=== PATIENT | male | born 1965 | race Caucasian/White ===

== ENCOUNTER 2019-07-03 03:06 | Observation (INO) ==
[2019-07-03] MEDS ORDERED: SODIUM CHLORIDE 0.9% 250 ML IV PRN (03:31)
[2019-07-03] MEDS ORDERED: DIPHTHERIA/TETANUS/PERTUSSIS 0.5 ML SYR/VIAL IM ONE (03:31)
[2019-07-03] MEDS ORDERED: LIDOCAINE HCL 1% 20 ML VIAL INFIL ONE (03:31)
--- NOTE | 2019-07-03 03:37 | Emergency Department Note ---
ED Provider Note Name: YESI BARRIGA Age: 53 Arrives Via: Ambulance Informant: Patient, Friends CC: GI Bleed HPI: 53M arrives for evaluation of GI Bleed. Patient with history of ulcerative colitis who notes no issues last few years. He had colonoscopy 10 days ago during which he notes there were 2 polyps removed and clip placed. He states he was feeling fine. He went to football game and noted his chronic low back pain acting up. Went to hotel eventually where he noted bloody bowel movement. Got in bed but started feeling cramping. Got up, had syncopal event witnessed by friends. Collapsed in to door frame with forehead trauma. Lacerations obtained. No known last tetanus. After awakening diaphoretic and lightheaded. Friend helped him to bathroom where he filled toilet with bright red blood. Some lesser bleeding since. EMS brought to ED. NSS Bolus given en route. No trauma, injuries. Notes Advil 400mg PO yesterday morning though doesn't take this regularly. Denies asa nor blood thinner use. No history of bleeding/bruising issues. No family history of bleeding issues. Notes he is currently feeling better. Mild headache. Denies neck pain, parethesias, nor other symptoms. Denies cp, sob, back pain beyond baseline, nor other symptoms. ROS: See above HPI for pertinent positives & negatives. A total of 10 systems reviewed and were otherwise negative. 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 HEAD: Contusion forehead with 4 cm simple vertical laceration mild venous bleeding, 2 cm abrasion medial to laceration. EYES: No scleral icterus, unremarkable pupils. ENT: Mucous membranes moist, no nasal congestion. NECK: No masses appreciated, nomeningismus, trachea is midline. RESPIRATORY: No dyspnea. Clear to auscultation and equal bilaterally. No wheeze, no rhonchi. CARDIOVASCULAR: Regular rate and rhythm.No murmurs, rubs, gallops appreciated. GASTROINTESTINAL: Abdomen soft, non-tender, no peritonitis.Bowel sounds positive.No masses appreciated. : Normal appearing male genitalia, blood throughout inner thighs and buttocks BACK: No midline tenderness, no CVA tenderness EXTREMITIES: Normal motion all extremities, no cyanosis, no edema. NEUROLOGIC: Alert and oriented, no acute motor or sensory deficits, no focal weakness, cranial nerves grossly intact. SKIN: No rash, no jaundice, no diaphoresis. ED Course: Prior Medical Record, Triage/Nursing Notes, Medications, Allergies reviewed by Me Vital Signs: reviewed and remarkable for no significant abnormalities Labs:Reviewed and remarkable for anemia Interventions: Saline Lock, NSS Bolus Imaging:X ray results are stated below per my interpretation: Chest: 1 view: No infiltrate, no effusion, normal cardiac border. [facility] Radiologist interpretation reviewed by me: CT head no acute findings EKG:Per My Interpretation: Indication Syncope Collapse: NSR 84 bpm qtc 470 no ectopy no ischemia, no previous for comparison Consults:Dr Rahul Khoury and Dr Calvillo [place] [facility] Procedure: laceration repair Location: Forehead Total length: 4cm Complexity: simple Verbal consent was obtained after the risks and benefits were explained, including but not limited to bleeding, scarring, infection, pain, and bone/joint/nerve damage. At this time, the risks of the procedure are less than the risks of NOT performing the procedure. A time out was taken and the correct patient and site identified. The skin was prepped with betadine. The target area was anesthetized with 4 ml of 1% lidocaine without epinephrine. Copious irrigation was performed using betadine and saline. The skin was re-prepped with betadine and a sterile field set. The wound was explored for foreign bodies and none found. Examination revealed no injury to deep structures such as tendons, bone, or significant blood vessels. Debridement was not performed. The wound edges were approximated using 11, 6-0 simple interrupted nylon sutures. Hemostasis and excellent approximation was achieved. Antibacterial ointment and a sterile dressing applied. Detailed wound care instructions and signs and symptoms of infection reviewed with the patient and friends. No complications and the patient tolerated the procedure well. Blood pressure:Normal.No Referral necessary Disposition:Hospitalization Differentials:Bleed from recent clipping, Diverticulitis, AVM, Coagulopathy, Colitis, Malignancy, Upper GI bleed, Fissure, Hemorrhoids, amongst other pathologies entertained. Medical Decision Makin yr old pleasant male arrives s/p syncope followed by multiple large bloody bowel movements. Lightheaded/dehydrated on arrival and given 1 L NSS bolus. Hgb 12 which I suspect is low for him. No significant abdominal pain nor TTP to require emergent imaging. BP/HR OK while here. EKG Trop negative. CT head negative. Laceration sutured by me. Discussed wound care and for suture removal in 5-7 days and plastic surgery follow up as necessary. Patient with repeat HgB mildly dropped from arrival though within 2 hours. I did review with call center operations manager GI who are aware and agree with current plan. Patient with periodic bloody bowel movements but vitals stable. Hospitalist in to see patient early and will bring in for further management. Did take single dose 400mg Advil yesterday though will hold on trying to reverse. He has low back pain which notes is chronic and without neuro deficits will hold on imaging currently. Impression: Acute Lower Gastrointestinal Bleeding Acute Blood Loss Anemia Syncope and Collapse Closed Head Injury Laceration of Face Cristóbal Islas MD Impression & Plan Acute lower gastrointestinal bleeding, Acute blood loss anemia, Syncope and collapse, Closed head injury, Laceration of face Past Med/Surg History Social History Feels Safe at Home: Yes Smoking Status: Never smoker Results & Data Vital Signs Vital Signs - 24 hr 07/03/19 03:00 07/03/19 06:12 Sepsis Recent Fever Within 48 Hours No Sepsis New/Unexplained Change in Mental Status No Sepsis Action Taken by Nursing No Action Required Pulse Rate 88 Pulse Rate [Right Finger] 97 H Pulse Rhythm Regular Pulse Rhythm [Right Finger] Regular Pulse Strength Normal Pulse Strength [Right Finger] Normal Respiratory Rate 18 16 Respiratory Effort / Characteristics Non-Labored Spontaneous Non-Labored Spontaneous Respiratory Depth Normal Normal Respiratory Pattern Regular Regular Blood Pressure 120/78 Blood Pressure [Right Arm] 131/89 Blood Pressure Mean 92 Blood Pressure Mean [Right Arm] 103 Blood Pressure Position Lying Blood Pressure Position [Right Arm] Lying Pulse Oximetry 98 99 Oxygen Delivery Method Room Air Room Air Laboratory Data Result diagrams: 07/03/19 05:00 07/03/19 03:16 Lab Results 07/03/19 07/03/19 07/03/19 Range/Units 03:16 03:16 03:16 WBC 14.46 H (4.8-10.8) K/uL RBC 4.15 L (4.7-6.1) M/uL Hgb 12.6 L (14.0-18.0) g/dL Hct 35.9 L (42-52) % MCV 86.5 (80-100) fL MCH 30.4 (25-34) pg MCHC 35.1 (32-36) g/dL RDW Std Deviation 39.8 (36.4-46.3) fL RDW Coeff of Eduin 12.5 (11.5-14.5) % Plt Count 255 (130-400) K/uL MPV 10.5 H (7.4-10.4) fL Immature Gran % (Auto) 0.9 % Neut % (Auto) 63.1 % Lymph % (Auto) 28.5 % [place] % (Auto) 5.3 % Eos % (Auto) 2.0 % Baso % (Auto) 0.2 % Immature Gran # (Auto) 0.13 H (0.00-0.02) K/uL Neut # (Auto) 9.13 H (1.4-6.5) K/uL Lymph # (Auto) 4.12 H (1.2-3.4) K/uL [place] # (Auto) 0.76 H (0.11-0.59) K/uL Eos # (Auto) 0.29 (0-0.5) K/uL Baso # (Auto) 0.03 (0-0.2) K/uL PT 10.6 (9.0-12.0) Seconds INR 1.0 (0.9-1.1) APTT 22.7 (21.0-31.0) Seconds PTT Ratio 0.8 Sodium (136-145) mmol/L Potassium (3.5-5.1) mmol/L Chloride (98-107) mmol/L Carbon Dioxide (21-32) mmol/L Anion Gap (3-11) BUN (7-18) mg/dl Creatinine (0.6-1.4) mg/dl Est Cr Clr Drug Dosing Est GFR ( Amer) Est GFR (Non-Af Amer) BUN/Creatinine Ratio (10-20) Glucose (70-99) mg/dl Calcium (8.5-10.1) mg/dl Troponin I (0-0.045) ng/ml Urine Color Urine Appearance (Clear) Urine pH (4.5-7.5) Ur Specific [place] (1.000-1.030) Urine Protein (Negative) Urine Glucose (UA) (Negative) Urine Ketones (Negative) Urine Blood (Negative) Urine Nitrite (Negative) Urine Bilirubin (Negative) Urine Urobilinogen (Negative) Ur Leukocyte Esterase (Negative) Urine RBC (0-4) /hpf Urine WBC (0-5) /hpf Ur Epithelial Cells (0-5) /lpf Urine Bacteria (Negative) Blood Type O Positive Antibody Screen NEGATIVE Crossmatch See Detail 07/03/19 07/03/19 07/03/19 Range/Units 03:16 04:55 05:00 WBC (4.8-10.8) K/uL RBC (4.7-6.1) M/uL Hgb 11.3 L (14.0-18.0) g/dL Hct 32.5 L (42-52) % MCV (80-100) fL MCH (25-34) pg MCHC (32-36) g/dL RDW Std Deviation (36.4-46.3) fL RDW Coeff of Eduin (11.5-14.5) % Plt Count (130-400) K/uL MPV (7.4-10.4) fL Immature Gran % (Auto) % Neut % (Auto) % Lymph % (Auto) % [place] % (Auto) % Eos % (Auto) % Baso % (Auto) % Immature Gran # (Auto) (0.00-0.02) K/uL Neut # (Auto) (1.4-6.5) K/uL Lymph # (Auto) (1.2-3.4) K/uL [place] # (Auto) (0.11-0.59) K/uL Eos # (Auto) (0-0.5) K/uL Baso # (Auto) (0-0.2) K/uL PT (9.0-12.0) Seconds INR (0.9-1.1) APTT (21.0-31.0) Seconds PTT Ratio Sodium 139 (136-145) mmol/L Potassium 3.8 (3.5-5.1) mmol/L Chloride 109 H (98-107) mmol/L Carbon Dioxide 25 (21-32) mmol/L Anion Gap 5.0 (3-11) BUN 27 H (7-18) mg/dl Creatinine 1.08 (0.6-1.4) mg/dl Est Cr Clr Drug Dosing Not Reportable Est GFR ( Amer) 91.0 Est GFR (Non-Af Amer) 78.5 BUN/Creatinine Ratio 25.0 H (10-20) Glucose 113 H (70-99) mg/dl Calcium 8.6 (8.5-10.1) mg/dl Troponin I < 0.015 (0-0.045) ng/ml Urine Color Yellow Urine Appearance Clear (Clear) Urine pH 6.0 (4.5-7.5) Ur Specific [place] 1.020 (1.000-1.030) Urine Protein Negative (Negative) Urine Glucose (UA) Negative (Negative) Urine Ketones 1+ H (Negative) Urine Blood 2+ H (Negative) Urine Nitrite Negative (Negative) Urine Bilirubin Negative (Negative) Urine Urobilinogen Negative (Negative) Ur Leukocyte Esterase Negative (Negative) Urine RBC 0-4 (0-4) /hpf Urine WBC 0-5 (0-5) /hpf Ur Epithelial Cells 0-5 (0-5) /lpf Urine Bacteria Negative (Negative) Blood Type Antibody Screen Crossmatch Administered Medications Sodium Chloride (Nss 1000ml) 1,000 mls @ 125 mls/hr IV .Q8H [facility] Stop: 08/02/19 03:44 Last Admin: 07/03/19 04:38 Dose: 125 mls/hr Documented by: [id number] Discontinued Medications Diphtheria/Pertussis/Tetanus Vacc (Adacel) 0.5 ml IM .ONCE ONE Stop: 07/03/19 03:32 Last Admin: 07/03/19 05:05 Dose: 0.5 ml Documented by: [id number] Sodium Chloride (Nss 1000ml) 1,000 mls @ 999 mls/hr IV .Q1H1M [facility] Stop: 07/03/19 05:45 Last Admin: 07/03/19 05:11 Dose: 999 mls/hr Documented by: [id number] Lidocaine HCl (Xylocaine 1% (Local)) 20 ml INFIL NOW ONE Stop: 07/03/19 03:32 Last Admin: 07/03/19 05:06 Dose: Not Given Documented by: [id number] Discharge Plan Visit Data Chief Complaint: GI Bleed Stated Complaint: GI BLEED/SYNCOPE/LACERATION Other Complaint: Laceration/Cut (Suture/Dermabond) Syncope ED Provider: Cristóbal Islas Discharge Problem: Acute lower gastrointestinal bleeding, Acute blood loss anemia, Syncope and collapse, Closed head injury, Laceration of face Forms Stand Alone Forms: [facility] Prescriptions Prescriptions: No Action tamsulosin 0.4 mg capsule 0.4 mg PO DAILY RF: 0 pregabalin 50 mg capsule 50 mg PO TID RF: 0 Discharge Problem: Closed head injury Qualifiers: Encounter type: initial encounter Qualified Code(s): S09.90XA - Unspecified injury of head, initial encounter Laceration of face Qualifiers: Encounter type: initial encounter Qualified Code(s): S01.81XA - Laceration without foreign body of other part of head, initial encounter
[2019-07-03] MEDS ORDERED: SODIUM CHLORIDE 0.9% 1000ML 1,000 ML IV SCH ×2 (03:45→04:45)
[2019-07-03 03:46] LABS: Basophils # (auto) 0.03 K/uL (0-0.2); Basophils % (auto) 0.2 %; Eosinophils # (auto) 0.29 K/uL (0-0.5); Hematocrit (blood only) 35.9 % (42-52); Hemoglobin 12.6 g/dL (14.0-18.0); Immature Granulocytes # (auto) 0.13 K/uL (0.00-0.02); Immature Granulocytes % (auto) 0.9 %; Lymphocytes # (auto) 4.12 K/uL (1.2-3.4); Lymphocytes % (auto) 28.5 %; Mean Corpuscular Hemoglobin 30.4 pg (25-34); Mean Corpuscular Hgb Conc 35.1 g/dL (32-36); Mean Corpuscular Volume 86.5 fL (80-100); Mean Platelet Volume 10.5 fL (7.4-10.4); Monocytes # (auto) 0.76 K/uL (0.11-0.59); Monocytes % (auto) 5.3 %; Neutrophils # (auto) 9.13 K/uL (1.4-6.5); Neutrophils % (auto) 63.1 %; Platelet Count 255 K/uL (130-400); RDW Coefficient of Variation 12.5 % (11.5-14.5); RDW Standard Deviation 39.8 fL (36.4-46.3); Red Blood Count 4.15 M/uL (4.7-6.1); White Blood Count 14.46 K/uL (4.8-10.8)
[2019-07-03 03:53] LABS: Blood Urea Nitrogen 27 mg/dl (7-18); Calcium 8.6 mg/dl (8.5-10.1); Carbon Dioxide 25 mmol/L (21-32); Chloride 109 mmol/L (98-107); Est GFR (Non-African American) 78.5; Glucose 113 mg/dl (70-99); Potassium 3.8 mmol/L (3.5-5.1); Sodium 139 mmol/L (136-145)
[2019-07-03 03:58] LABS: Troponin I < 0.015 ng/ml (0-0.045)
[2019-07-03 04:00] LABS: Partial Thromboplastin Ratio 0.8; Partial Thromboplastin Time 22.7 Seconds (21.0-31.0); Prothrombin Time 10.6 Seconds (9.0-12.0)
[2019-07-03 05:14] LABS: Hematocrit (blood only) 32.5 % (42-52); Hemoglobin 11.3 g/dL (14.0-18.0)
[2019-07-03 05:15] LABS: Appearance Urine Clear (Clear); Bilirubin Urine Negative (Negative); Blood Urine 2+ (Negative); Color Urine Yellow; Glucose Urine UA Negative (Negative); Ketones Urine 1+ (Negative); Leukocyte Esterase Urine Negative (Negative); Nitrite Urine Negative (Negative); Protein Urine Negative (Negative); Urobilinogen Urine Negative (Negative)
[2019-07-03 05:26] LABS: Bacteria Urine Negative (Negative); Epithelial Cell Urine 0-5 /lpf (0-5); RBC Urine 0-4 /hpf (0-4); WBC Urine 0-5 /hpf (0-5)
--- NOTE | 2019-07-03 06:13 | History & Physical Report ---
Date of Service July 03, 2019 Assessment & Plan (1) Post-polypectomy bleeding: Status post polypectomy, with acute lower GI bleeding, bright red blood per rectum. Leading to syncope. Did take ibuprofen 40 mg approximately 24 hours previously. If continues to have larger volume bleeding, would add DDAVP. I sent to get records of procedure from outside hospital. On-call gastroenterology has been notified and will see the patient. Present on Admission?: Yes (2) Acute lower gastrointestinal bleeding: See above Present on Admission?: Yes (3) Acute blood loss anemia: Initial hemoglobin 12.6, with follow-up after 1 L of fluid 11.3. We will continue to follow H&H's every 6 hours. Type and screen completed Present on Admission?: Yes (4) Syncope and collapse: Syncope and collapse/closed head injury/right frontal laceration- CT head negative for acute intracranial bleeding. Secondary to acute lower GI bleeding. Likely in part vasovagal syncope. Present on Admission?: Yes (5) Closed head injury: See above Present on Admission?: Yes (6) Ulcerative colitis: Not active, just had routine colonoscopy Present on Admission?: Yes (7) Laceration of face: Repaired by the ED. Present on Admission?: Yes (8) BPH (benign prostatic hyperplasia): Hold tamsulosin while npo Present on Admission?: Yes (9) Chronic low back pain: hold gabapentin while npo Present on Admission?: Yes History of Present Illness Chief Complaint: The patient presents to the emergency department with complaint of a large bloody bowel movement, followed by a syncopal episode with forehead laceration. Primary Care Provider: NO PCP The patient is a 53-year-old male, in for the football game from out of town, who has a past medical history including ulcerative colitis, peripheral neuropathy, and BPH, who underwent a colonoscopy approximately 10 days ago, with polypectomy x2 and clip placement. He appeared to have tolerated the procedure well, and had been doing well until after football game yesterday. When he went back to his hotel, he had a large bloody bowel movement, and then had a syncopal episode with sustained laceration to right frontal scalp area. He has not had any previous episodes, and has continued to have less voluminous bloody BMs while in the ED, although he does have intermittent abdominal cramping. He does report a single usage of ibuprofen 400 mg p.o. yesterday morning for chronic low back pain. Allergies Allergy/AdvReac Type Severity Reaction Status Date / Time No Known Allergies Allergy Unverified 07/03/19 05:39 Home Medications Home Medications Medication Instructions Recorded Confirmed Type pregabalin 50 mg PO TID 07/03/19 07/03/19 History tamsulosin 0.4 mg PO DAILY 07/03/19 07/03/19 History Past Med/Surg History Social History Feels Safe at Home: Yes Smoking Status: Never smoker Review of Systems Review of Systems: The patient denies chest pain, palpitations, shortness of breath, dyspnea on exertion, cough, lower extremity swelling, sore throat, fevers, chills, sweats, nausea, vomiting, blood in urine, dysuria, urinary frequency or urgency, rash, focal weakness, numbness or tingling in arms or legs, generalized arthralgias or myalgias, change in chronic low back pain, or night sweats. The review of systems is otherwise negative other than for that already noted above, and at least 10 systems have been reviewed. Physical Exam Physical Exam: The patient is awake, alert and oriented 3, lying in bed, looks pale and mildly diaphoretic, with right frontal scalp laceration. HEENT--PERRL, EOMI, mucous membranes and oropharynx dry. Neck--supple. No JVD. No bruits. Thyroid normal, trachea midline, no adenopathy. Heart--normal S1 and S2. No murmurs, rubs or gallops. Lungs--clear bilaterally, no respiratory distress, no accessory muscle use. Abdomen--normal bowel sounds and soft. Nontender. Nondistended. Extremities--no cyanosis or clubbing. No edema. Dermatologic--looks pale and mildly diaphoretic Neurologic--cranial nerves II through XII grossly intact. Rheumatologic--normal range of motion. Psychiatric--normal affect. Results & Data Vital Signs (Past 12 Hours) Vital Signs Pulse Resp BP Pulse Ox 07/03/19 03:00 88 18 120/78 98 Laboratory Results Laboratory Results WBC 14.46 K/uL (4.8-10.8) H 07/03/19 03:16 RBC 4.15 M/uL (4.7-6.1) L 07/03/19 03:16 Hgb 11.3 g/dL (14.0-18.0) L 07/03/19 05:00 Hct 32.5 % (42-52) L 07/03/19 05:00 MCV 86.5 fL (80-100) 07/03/19 03:16 MCH 30.4 pg (25-34) 07/03/19 03:16 MCHC 35.1 g/dL (32-36) 07/03/19 03:16 RDW Std Deviation 39.8 fL (36.4-46.3) 07/03/19 03:16 RDW Coeff of Eduin 12.5 % (11.5-14.5) 07/03/19 03:16 Plt Count 255 K/uL (130-400) 07/03/19 03:16 MPV 10.5 fL (7.4-10.4) H 07/03/19 03:16 Immature Gran % (Auto) 0.9 % 07/03/19 03:16 Neut % (Auto) 63.1 % 07/03/19 03:16 Lymph % (Auto) 28.5 % 07/03/19 03:16 [place] % (Auto) 5.3 % 07/03/19 03:16 Eos % (Auto) 2.0 % 07/03/19 03:16 Baso % (Auto) 0.2 % 07/03/19 03:16 Immature Gran # (Auto) 0.13 K/uL (0.00-0.02) H 07/03/19 03:16 Neut # (Auto) 9.13 K/uL (1.4-6.5) H 07/03/19 03:16 Lymph # (Auto) 4.12 K/uL (1.2-3.4) H 07/03/19 03:16 [place] # (Auto) 0.76 K/uL (0.11-0.59) H 07/03/19 03:16 Eos # (Auto) 0.29 K/uL (0-0.5) 07/03/19 03:16 Baso # (Auto) 0.03 K/uL (0-0.2) 07/03/19 03:16 PT 10.6 Seconds (9.0-12.0) 07/03/19 03:16 INR 1.0 (0.9-1.1) 07/03/19 03:16 APTT 22.7 Seconds (21.0-31.0) 07/03/19 03:16 PTT Ratio 0.8 07/03/19 03:16 Sodium 139 mmol/L (136-145) 07/03/19 03:16 Potassium 3.8 mmol/L (3.5-5.1) 07/03/19 03:16 Chloride 109 mmol/L (98-107) H 07/03/19 03:16 Carbon Dioxide 25 mmol/L (21-32) 07/03/19 03:16 Anion Gap 5.0 (3-11) 07/03/19 03:16 BUN 27 mg/dl (7-18) H 07/03/19 03:16 Creatinine 1.08 mg/dl (0.6-1.4) 07/03/19 03:16 Est Cr Clr Drug Dosing Not Reportable 07/03/19 03:16 Est GFR ( Amer) 91.0 07/03/19 03:16 Est GFR (Non-Af Amer) 78.5 07/03/19 03:16 BUN/Creatinine Ratio 25.0 (10-20) H 07/03/19 03:16 Glucose 113 mg/dl (70-99) H 07/03/19 03:16 Calcium 8.6 mg/dl (8.5-10.1) 07/03/19 03:16 Troponin I < 0.015 ng/ml (0-0.045) 07/03/19 03:16 Urine Color Yellow 07/03/19 04:55 Urine Appearance Clear (Clear) 07/03/19 04:55 Urine pH 6.0 (4.5-7.5) 07/03/19 04:55 Ur Specific [place] 1.020 (1.000-1.030) 07/03/19 04:55 Urine Protein Negative (Negative) 07/03/19 04:55 Urine Glucose (UA) Negative (Negative) 07/03/19 04:55 Urine Ketones 1+ (Negative) H 07/03/19 04:55 Urine Blood 2+ (Negative) H 07/03/19 04:55 Urine Nitrite Negative (Negative) 07/03/19 04:55 Urine Bilirubin Negative (Negative) 07/03/19 04:55 Urine Urobilinogen Negative (Negative) 07/03/19 04:55 Ur Leukocyte Esterase Negative (Negative) 07/03/19 04:55 Urine RBC 0-4 /hpf (0-4) 07/03/19 04:55 Urine WBC 0-5 /hpf (0-5) 07/03/19 04:55 Ur Epithelial Cells 0-5 /lpf (0-5) 07/03/19 04:55 Urine Bacteria Negative (Negative) 07/03/19 04:55 Blood Type O Positive 07/03/19 03:16 Antibody Screen NEGATIVE 07/03/19 03:16 Crossmatch See Detail 07/03/19 03:16 Diagnostic Findings [place], [place] [phone] XRay Report Patient: KIN HESS Date: 07/02/19 MR#: [id number] [address] Acct ID:[id number]: FREDIS DIOR PERSONAL CARE Date: 03/08/1926[facility] Zip: [place] [address] Age: 89Location: ED Sex: M Room/Bed: Att Phy:Diagnosis: AMS [place] Phy: Fredis DiorPCHService Date: 07/02/19 Fam Phy:Interpreting Phy: Phill Gay MD Admit Phy: Ordering Phy: Cristóbal Islas M.D. cc: ~ XR chest 1V portable CLINICAL HISTORY: fever, confusion COMPARISON STUDY: 06/12/2019 FINDINGS: Ill-defined interstitial infiltrate left base. Lungs otherwise appear clear. Diaphragms are smooth. IMPRESSION: Minimal interstitial infiltrate left base. The above report was generated using voice recognition software. It may contain grammatical, syntax or spelling errors. Electronically signed by: Phill Gay M.D. 07/02/2019 10:52 PM Dictated: 07/02/192250 Transcribed: 07/02/192250 Code Status & VTE Plan Code Status Full code VTE Prophylaxis Plan VTE Prophylaxis will be ordered: Yes PG Care Time/CCT Total # of Minutes Spent Total Time Spent with Patient: Total time spent is greater than 50% in coordination of care (as documented) at patient's floor/unit and/or counseling patient: (1) Closed head injury Encounter type: initial encounter Qualified Code(s): S09.90XA - Unspecified injury of head, initial encounter (2) Laceration of face Encounter type: initial encounter Qualified Code(s): S01.81XA - Laceration without foreign body of other part of head, initial encounter
--- NOTE | 2019-07-03 06:58 | CT Scan Report ---
HEAD CT NONCONTRAST CT DOSE: 614.27 mGy.cm HISTORY: syncope, forehead injury TECHNIQUE: Multiaxial CT images of the head were performed without the use of intravenous contrast. A utomated exposure control was utilized for this study. A dose lowering technique was utilized adheri ng to the principles of ALARA. Comparison: None. Findings: The paranasal sinuses and mastoid air cells are clear. The calvarium and skull base are int act. The ventricles and sulci are within normal limits. There is no mass, hematoma, midline shift, or acute infarct. Right frontal scalp swelling with a small laceration. Impression: No acute intracranial abnormality. Right frontal scalp injury. Electronically signed by: Abraham Blanton M.D. 07/03/2019 6:57 AM
[2019-07-03] MEDS ORDERED: ONDANSETRON INJ 2 MG/ML 2 ML VIAL IV PRN (06:59)
[2019-07-03] MEDS ORDERED: NSS + 20MEQ KCL 20 MEQ/1,000 ML BAG IV SCH (06:59)
--- NOTE | 2019-07-03 07:54 | XRay Report ---
XR chest 1V portable HISTORY: syncope COMPARISON: None. FINDINGS: The lungs are clear. Cardiac silhouette is normal in size. No pleural effusions. No pneumot horax. IMPRESSION: No acute process. Electronically signed by: Abraham Blanton M.D. 07/03/2019 7:53 AM
--- NOTE | 2019-07-03 07:55 | XRay Report ---
KUB HISTORY: s/p polypectomy, lower gi bleed, abdominal pain COMPARISON: None. FINDINGS: The bowel gas pattern is unremarkable. There are no dilated loops of small bowel to suggest an obstruction. No renal calculi. No ureteral calculi. Calcifications in the deep pelvis likely rep resent phleboliths. No pneumoperitoneum or pneumatosis. IMPRESSION: Unremarkable bowel gas pattern. No evidence for bowel obstruction. Electronically signed by: Abraham Blanton M.D. 07/03/2019 7:54 AM
[2019-07-03] MEDS ORDERED: FAMOTIDINE 20 MG in SYRINGE 3 ML IV SCH (08:00)
[2019-07-03 08:06] LABS: Hematocrit (blood only) 32.4 % (42-52); Hemoglobin 11.5 g/dL (14.0-18.0)
--- NOTE | 2019-07-03 09:19 | Gastrointestinal Consultation ---
Date of Consultation July 03, 2019 Supervising Physician Co-Signing Physician Notes 53 yo male with a history of prior colitis that appears to be quiescent, recent colonoscopy 10 days ago in [place], [place] with reports of polypectomy with clip placement in the ascending colon per patient report. Admitted overnite thru the ER for rectal bleeding and syncope after having been drinking during the day at [employer] game and also eating cheesesteaks. He has remained hemodynamically stable. Per discussion with this morning, he wants to go home. Would trend h/h - if noon time h/h is stable (over 10), and he is not having active bleeding or feeling better, reasonable to dc home with close GI follow-up where her normally lives in [place], [place]. If hgb is dropping and or he is having more profuse rectal bleeding, would consider prep (would need to order with [employer] 4 liters), and make npo after midnite for possible colonoscopy tomorrow. Plan was conveyed to patient and primary hospitalist. Denies being on blood thinners. If he develops abdominal pain, would consider CT A/P with contrast. History of Present Illness Reason for Consultation: Rectal bleeding Requesting Physician: ER physician Attending Physician: Gordon Interiano MD History of Present Illness 53 yo male with a history of being here in town for the [employer]. [facility]. He reports a history of remote IBD (not clear if uc or crohn's) since the age of 22, he has been on predisone and sufasalazine on and off. Was having back pain- call his local GI doctor in [place], [place] and had a colonoscopy reportedly 10 days ago. Per patient report, on that colonoscopy no evidence of colitis, 2 polyps - 5 mm and 8 mm he thinks in the ascending colon with a clip placed, no diverticula, or hemorrhoids. No issues with bleeding post polypectomy. During the game yesterday, he had 5 beers and a shot between noon and 6 pm, and ate some cheesesteaks, sitting in the stadium thereafter with bad back pain- took an alleve, left the stadium with a friend. Stopped bc he felt like he was having diarrhea- non-bloody at that time, no abdominal pain. He then made it back home- watched the 4th quarter of the football game and baseball game, went to sleep, woke up with urgency and passed bright red blood in the toilet bowl- no abdominal pain with this episode. He then felt woozy, does not think he was drunk, but then thinks he fell- someone found him and he had blood in his hand and a right forehead lac. He was then brought into the ER - he has been hemodynamically stable, passing blood intermittently, initial hgb 12.5, then 11.3, and now 11.5. Received fluid. When seeing him bedside this morning, he states he is feeling much better. He is still going to the bathroom but it is more congealed. He feels tired but overall better. Denies being on blood thinners. No abdominal pain with any of these episodes. with him today when I saw them this morning. 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 Beliefs That Will Affect Care: None Current Living Situation: Spouse Feels Safe at Home: Yes Smoking Status: Never smoker Hx Alcohol Use: Yes ("rarely") Hx Substance Use: No Review of Systems Review of Systems: All systems reviewed & are unremarkable except as noted in HPI & below Physical Exam 2 Physical Exam: Tired appearing white male in nad Constitutional: Forehead laceration Eyes: PERRL, conjunctivae normal, anicteric sclerae Gastrointestinal (Abdomen): normal bowel sounds, soft, nontender, no hepatosplenomegaly Neurologic: CN's II-XI intact bilaterally Results & Data Vital Signs (Past 12 Hours) Vital Signs Temp Pulse Pulse Resp BP BP BP 07/03/19 07:38 36.7 C 88 16 108/66 07/03/19 06:35 36.6 C 80 18 134/101 H 07/03/19 06:12 97 H 16 131/89 07/03/19 03:00 88 18 120/78 Pulse Ox 07/03/19 07:38 98 07/03/19 06:35 100 07/03/19 06:12 99 07/03/19 03:00 98 Labs reviewed
[2019-07-03 12:18] LABS: Hematocrit (blood only) 32.5 % (42-52); Hemoglobin 11.4 g/dL (14.0-18.0)
--- NOTE | 2019-07-03 12:30 | Discharge Summary ---
Date of Service July 03, 2019 Admission HPI Per Admitting Provider The patient is a 53-year-old male, in for the football game from out of town, who has a past medical history including ulcerative colitis, peripheral neuropathy, and BPH, who underwent a colonoscopy approximately 10 days ago, with polypectomy x2 and clip placement. He appeared to have tolerated the procedure well, and had been doing well until after football game yesterday. When he went back to his hotel, he had a large bloody bowel movement, and then had a syncopal episode with sustained laceration to right frontal scalp area. He has not had any previous episodes, and has continued to have less voluminous bloody BMs while in the ED, although he does have intermittent abdominal cramping. He does report a single usage of ibuprofen 400 mg p.o. yesterday morning for chronic low back pain. Principal Diagnosis Post-polypectomy lower GI bleeding Syncope - due to lower GI bleed Scalp laceration Discharge Exam Constitutional WD/WN, vitals as above Neck normal visual inspection and trachea midline Respiratory normal respiratory effort, lungs clear to auscultation Cardiovascular RRR, no murmur, no edema Gastrointestinal (Abdomen) normal bowel sounds, soft, nontender, no hepatosplenomegaly Musculoskeletal no cyanosis or clubbing, extremities motor strength 5/5 Skin no rashes, warm and dry Neurologic moves all extremities and awake; no focal motor deficits and not confused Psychiatric A+Ox3, euthymic affect Discharge Data Allergies Allergy/AdvReac Type Severity Reaction Status Date / Time No Known Allergies Allergy Unverified 07/03/19 05:39 Consultations 07/03/19 04:17 ED Decision to Admit Stat 07/03/19 05:45 Consult Gastroenterology Routine 07/03/19 06:59 Consult Case Management - Discharge Planning Routine Ordered Studies 07/03/19 03:31 CT head/brain wo con Urgent Hospital Course (1) Post-polypectomy [age]-year-old male with known ulcerative colitis observed overnight due to lower GI bleed causing syncope. Patient is from out of town and underwent colonoscopy last week with his usual switchboard installer. He reports removal of polyps at that time. He is concerned because he had an MRI on Thursday and is wondering whether this loosened 1 of the clips. No further bleeding episodes we re noted on observation. His hemoglobin is stable. Hemoglobin 11.4 on discharge. He was reviewed by Dr.Nina Kay from gastroenterology and recommended discharge at this time. The patient should call his usual switchboard installer tomorrow. He also had a scalp laceration due to the syncopal events which was sutured in the emergency room. Sutured with 11, 6-0 simple interrupted nylon sutures. To be removed in 7-10 days. Please follow up with your PCP regarding this. Suspect syncopal event due to vasovagal effects of lower GI bleed. He has been hemodynamically stable throughout admission. He was able to ambulate around the sal without dizziness prior to discharge. He was instructed he should not drive for the next 24 hours. (2) Acute lower gastrointestinal bleeding: See above (3) Acute blood loss anemia: (4) Syncope and collapse: (5) Closed head injury: (6) Ulcerative colitis: (7) Laceration of face: (8) BPH (benign prostatic hyperplasia): (9) Chronic low back pain: Total Time Total Time Spent Total Time Spent (In Minutes): 55 Total Time Includes: Examination of the Patient, Discharge Planning, Medication Reconciliation and Communication With Other Providers (Dr. Krystle Kay) Discharge Plan Discharge Items Patient Disposition: Home - Self-Care Reason For Visit: LOWER GI BLEED Discharge Diagnosis: Post-polypectomy lower GI bleeding Syncope - due to lower GI bleed Ulcerative colitis without active flare Scalp laceration Condition on Discharge: Fair Activity: Resume your previous activity Non-emergency contact: Primary Care Provider Call non-emergency contact if: you have any medication questions and your symptoms worsen Follow-up/Referrals: PCP,NO [Primary Care Provider] - Diet: Regular Addtl Attending Provider Instructions: You were observed overnight due to lower GI bleed. Suspect this is due to recent polypectomy exacerbated ibuprofen use and possibly MRI. This remained stable and review from gastroenterology recommended discharge with close follow up with your usual switchboard installer (please call in the morning). Hgb 11.4 on discharge. You also had a scalp laceration - this was sutured with 11, 6-0 simple interrupted nylon sutures. To be removed in 7-10 days. Please follow up with your PCP regarding this. Pending Studies at Discharge: Yes (Stool culture) Stand-Alone Forms: [facility] [employer] Medications and DC Order Prescriptions: Continued tamsulosin 0.4 mg capsule 0.4 mg PO DAILY RF: 0 pregabalin 50 mg capsule 50 mg PO TID RF: 0 Discharge Orders: Discharge Order (Routine); Ordered 07/03/19 Ordered By: Gordon Carpio/Other Patient Handouts: Colitis Ulcerative, Bleeding Rectal, Sutr Care, ED Head Injury Closed Admission Data Admit Date/Time: 07/03/19 05:58 Attending Provider: Gordon Interiano Admit Provider: Julio Calvillo Primary Care Provider: PCP,ESSIE Other Providers: Julio Calvillo ; Krystle Kay Other Interventions: Discharge Summary Assessment (RN) Last Done: 07/03/19 14:24 DC Date/Time DO NOT enter until pt leaves facility: 07/03/19 15:03
== END 2019-07-03 15:03 | disposition home or self-care (01) ==
LOC: ED 03:06 → 2E 05:58 → SUATTDRO 05:58 → INTOOBSV 05:58 → 2E 06:23